=== PATIENT | male | born 1965 | race Caucasian/White ===

== ENCOUNTER 2024-03-19 23:51 | Inpatient (IN) | payer MEDICAID ==
[~2024-03-19] VITALS: Ht 165.1 cm; Wt 79.8 kg
[~2024-03-19 23:51] MED LIST: NITR-87 MT
[2024-03-20] MEDS: SODIUM CHLORIDE 0.9% 1000ML BAG (SEPSIS BOLUS) IV ONE (00:14)
[2024-03-20] MEDS: PIPERACILLIN/TAZO 3.375G/50ML 50 ML IV ONE (00:18)
[2024-03-20 00:35] LABS: MEAN CORPUSCULAR HEMOGLOBIN 30.9 pg (28.0-32.0); MEAN CORPUSCULAR HGB CONC 34.5 g/dL (31.0-37.0); MEAN CORPUSCULAR VOLUME 89.6 fL (80.0-94.0); MEAN PLATELET VOLUME 7.9 fl (7.4-10.4); PLATELET 186 x1000/uL (130-400); RED BLOOD CELL COUNT 2.03 mill/uL (4.7-6.1); RED CELL DISTRIBUTION WIDTH 21.8 % (11.6-14.6); WHITE BLOOD COUNT 13.4 x1000/uL (4.5-11.0)
[2024-03-20 00:39] LABS: CHLORIDE 103 mEq/L (98-107); POTASSIUM 3.7 mEq/L (3.5-5.1); SODIUM 134 mEq/L (136-145)
[2024-03-20 00:40] LABS: CALCIUM 9.2 mg/dL (8.7-10.4); CARBON DIOXIDE 24 mEq/L (21-32)
[2024-03-20 00:45] LABS: CREATININE 0.8 mg/dL (0.6-1.3); GLUCOSE 132 mg/dL (70-105); UREA NITROGEN BLOOD 14 mg/dL (9-23)
[2024-03-20 00:46] LABS: TROPONIN I HIGH SENSITIVITY 16 ng/L (3.0-53)
[2024-03-20 01:01] LABS: LACTIC ACID 2.3 mmol/L (0.4-2.0)
[2024-03-20 01:07] LABS: DIFFERENTIAL COMMENT 1; HEMATOCRIT. 18.2 % (42.0-52.0); HEMOGLOBIN. 6.3 g/dL (14.0-18.0)
[2024-03-20] MEDS: ACETAMINOPHEN 325MG TABLET PO STA (01:16)
[2024-03-20] MEDS: VANCOMYCIN 1G PREMIX 200 ML IV ONE (01:17)
[2024-03-20 01:27] LABS: INR 1.2; PROTHROMBIN TIME 13.2 sec (9.6-11.0)
[2024-03-20 01:46] LABS: CLARITY URINE CLOUDY (CLEAR); COLOR URINE YELLOW (YELLOW); GLUCOSE URINE NEGATIVE (NEGATIVE); KETONES URINE NEGATIVE (NEGATIVE); LEUKOCYTE ESTERASE URINE 2+ (NEGATIVE); NITRITE URINE NEGATIVE (NEGATIVE); OCCULT BLOOD URINE NEGATIVE (NEGATIVE); PROTEIN URINE 1+ (NEGATIVE); SPECIFIC GRAVITY URINE 1.013 (1.005-1.030)
[2024-03-20 02:36] LABS: RBC URINE 0-2 /hpf (0-2)
[2024-03-20] MEDS: NOREPINEPHRINE 8MG/250ML PMX 250 ML IV STA (02:36)
[2024-03-20 02:37] LABS: BACTERIA URINE 3+; SQUAMOUS EPITHELIAL CELL URINE FEW /lpf (RARE/1+)
[2024-03-20] MEDS: SODIUM CHLORIDE 0.9% 1,000 ML IV ONE (02:37)
[2024-03-20 02:38] LABS: WBC URINE 15-25 /hpf (0-2)
[2024-03-20 04:24] LABS: OVALOCYTES 2+; PLATELET ESTIMATE NORMAL
[2024-03-20 04:25] LABS: HYPOCHROMASIA 1+
[2024-03-20] MEDS: IOHEXOL-300 100 ML BOTTLE ONE (04:26)
[2024-03-20 16:00] VITALS: BP 123/58; PULSE 81; RESP 18; TEMP 97.2
[2024-03-20 18:00] VITALS: BP 122/85; PULSE 75; RESP 19
[2024-03-20] MEDS ORDERED: PNEUMOCOCCAL 23-VAL P-SAC VAC 0.5 ML IM ONE (18:15)
[2024-03-20] MEDS ORDERED: INFLUENZA VACCINE 05/PF 0.5 ML SYRINGE IM ONE (18:15)
[2024-03-20 19:16] VITALS: BP 123/58; PULSE 83; RESP 21; TEMP 97.8
[2024-03-20 20:00] VITALS: BP 124/62; PULSE 76; RESP 20
[2024-03-20] MEDS ORDERED: ACETAMINOPHEN 325MG TABLET PO PRN ×2 (20:00)
[2024-03-20] MEDS ORDERED: DOCUSATE SODIUM 100MG CAPSULE PO PRN (20:00)
[2024-03-20] MEDS ORDERED: ONDANSETRON HCL 4MG/2ML INJ IV PRN (20:00)
[2024-03-20] MEDS ORDERED: DEXTROSE 50% WATER 50ML SYRINGE IV PRN (20:00)
[2024-03-20] MEDS ORDERED: IPRATROPIUM/ALBUTEROL 0.5-3(2.5)MG/3ML NEB HHN PRN (20:00)
[2024-03-20] MEDS ORDERED: CEFEPIME 1GM IN DEXT 5% 50ML IV SCH (20:00)
[2024-03-20] MEDS ORDERED: CLONIDINE 0.1MG TABLET PO PRN (20:00)
[2024-03-20] MEDS: BLOOD SUGAR DIAGNOSTIC STRIP TEST SCH (21:00)
[2024-03-20] MEDS: INSULIN LISPRO 100 UNITS/ML SUBCUT SCH (21:00)
[2024-03-20] MEDS: CEFEPIME 1GM/50ML 50 ML IV SCH (21:19)
[2024-03-20 22:00] VITALS: BP 125/91; PULSE 97; RESP 25
[2024-03-20 22:26] LABS: IRON 166 ug/dL (65-175)
[2024-03-20 22:29] LABS: TOTAL IRON BINDING CAPACITY 213 ug/dl (250-425)
[2024-03-20 22:55] LABS: FERRITIN 1216 ng/mL (22-322); VITAMIN B12 SERUM 523 pg/mL (211-911)
[2024-03-20 23:06] LABS: HEPATITIS B SURFACE ANTIGEN NEGATIVE (Negative)
[2024-03-20 23:07] LABS: HEPATITIS B SURFACE ANTIGEN NEGATIVE (Negative)
[2024-03-20 23:26] LABS: HEPATITIS A AB IGM NEGATIVE (Negative)
[2024-03-20 23:27] LABS: HEPATITIS B CORE AB IGM NEGATIVE (Negative); HEPATITIS C AB NON REACTIVE (Neg) (Negative)
[2024-03-20 23:28] LABS: HEPATITIS C AB NON REACTIVE (Neg) (Negative)
[2024-03-21] VITALS (10 sets, daily range): BP systolic 106–139; BP diastolic 52–70; PULSE 72–86; RESP 14–20; TEMP 96–98.6
[2024-03-21 07:11] LABS: BASOPHILS % 0.5 % (0.0-2.0); EOSINOPHILS % 0.3 % (0.0-5.0); HEMATOCRIT. 24.7 % (42.0-52.0); HEMOGLOBIN. 8.6 g/dL (14.0-18.0); MEAN CORPUSCULAR HEMOGLOBIN 30.6 pg (28.0-32.0); MEAN CORPUSCULAR HGB CONC 34.9 g/dL (31.0-37.0); MEAN CORPUSCULAR VOLUME 87.7 fL (80.0-94.0); MONOCYTES % 14.9 % (2.0-8.0); NEUTROPHILS % 73.3 % (40.0-76.0); PLATELET 194 x1000/uL (130-400); RED BLOOD CELL COUNT 2.81 mill/uL (4.7-6.1); RED CELL DISTRIBUTION WIDTH 19.3 % (11.6-14.6); WHITE BLOOD COUNT 7.8 x1000/uL (4.5-11.0)
[2024-03-21 07:14] LABS: CHLORIDE 108 mEq/L (98-107); SODIUM 139 mEq/L (136-145)
[2024-03-21 07:15] LABS: CARBON DIOXIDE 24 mEq/L (21-32)
[2024-03-21 07:21] LABS: GLUCOSE 139 mg/dL (70-105); UREA NITROGEN BLOOD 10 mg/dL (9-23)
[2024-03-21 08:02] LABS: CREATININE 0.5 mg/dL (0.6-1.3)
[2024-03-22] VITALS: BP 129/69; PULSE 74; RESP 20; TEMP 97.8
[2024-03-22 04:00] VITALS: BP 130/65; PULSE 63; RESP 18; TEMP 98.1
[2024-03-22 06:38] LABS: CARBON DIOXIDE 24 mEq/L (21-32); CHLORIDE 110 mEq/L (98-107); POTASSIUM 4.2 mEq/L (3.5-5.1); SODIUM 139 mEq/L (136-145)
[2024-03-22 06:40] LABS: CALCIUM 9.3 mg/dL (8.7-10.4)
[2024-03-22 06:44] LABS: CREATININE 0.6 mg/dL (0.6-1.3); GLUCOSE 114 mg/dL (70-105); UREA NITROGEN BLOOD 9 mg/dL (9-23)
[2024-03-22 06:45] LABS: HEMATOCRIT. 24.5 % (42.0-52.0); HEMOGLOBIN. 8.6 g/dL (14.0-18.0); MEAN CORPUSCULAR HGB CONC 35.3 g/dL (31.0-37.0); MEAN CORPUSCULAR VOLUME 87.8 fL (80.0-94.0); MEAN PLATELET VOLUME 7.4 fl (7.4-10.4); PLATELET 216 x1000/uL (130-400); RED BLOOD CELL COUNT 2.79 mill/uL (4.7-6.1); WHITE BLOOD COUNT 5.1 x1000/uL (4.5-11.0)
[2024-03-22 07:07] LABS: DIFFERENTIAL COMMENT 1
[2024-03-22 08:00] VITALS: BP 148/68; PULSE 74; RESP 20; TEMP 97.5
[2024-03-22 10:22] LABS: PLATELET ESTIMATE NORMAL
[2024-03-22 12:00] VITALS: BP 131/70; PULSE 79; RESP 20; TEMP 97.4
[2024-03-22 12:27] LABS: ANISOCYTOSIS 1+
[2024-03-22] MEDS ORDERED: NITR-87 MT (14:42)
[2024-03-22 16:47] VITALS: BP 136/80; PULSE 76; TEMP 97.5; O2SAT 96
== END 2024-03-22 18:13 | disposition home or self-care (01) | DRG 720 ==
LOC: ER 23:51 → EDBEDREQTM 03-20 02:15 → EDBEDREQ 03-20 02:15 → EDBEDREQSVC 03-20 02:40 → 5EST 03-20 16:43 → 3WST 03-21 15:46
PROVIDERS: ADMIT Internal Medicine; ATTEND Internal Medicine
PROC: 05H533Z Insertion of Infusion Device into Right Subclavian Vein, Percutaneous Approach (ICD-10-PCS; principal; 2024-03-20)
PROC: B546ZZA Ultrasonography of Right Subclavian Vein, Guidance (ICD-10-PCS; 2024-03-20)
PROC: 30233N1 Transfusion of Nonautologous Red Blood Cells into Peripheral Vein, Percutaneous Approach (ICD-10-PCS; 2024-03-20)
DX: A41.9 Sepsis, unspecified organism (principal); R65.21 Severe sepsis with septic shock; I31.39 Other pericardial effusion (noninflammatory); K76.6 Portal hypertension; R16.2 Hepatomegaly with splenomegaly, not elsewhere classified; D64.9 Anemia, unspecified; E11.9 Type 2 diabetes mellitus without complications; K76.9 Liver disease, unspecified; I10 Essential (primary) hypertension; N20.0 Calculus of kidney; R82.71 Bacteriuria; N39.0 Urinary tract infection, site not specified; Z79.84 Long term (current) use of oral hypoglycemic drugs; Z92.21 Personal history of antineoplastic chemotherapy; Z79.899 Other long term (current) drug therapy
CPT/HCPCS: 36415; 71045; 74177; 80048; 81003; 82607; 82728; 82746; 82962; 83036; 83540; 83550; 83605; 84145; 84484; 85025; 86705; 86709; 86850; 86900; 86920; 87077; 87186; 87340; 87804; 93005; 93306; 99291; J0692; J1815; J2543; J3370; J3490; J7030; P9016; Q9967